=== PATIENT | female | born 1960 | race Caucasian/White ===

== ENCOUNTER → 2016-10-28 | Outpatient (CLI) | payer OTHER ==
[~2016-10-28] MED LIST: AMLODIPINE-ATO1 EAC5 PO; ASPIRIN EC81 M1 PO; HYDROCHLOROTHIA25 MG PO; LEVOTHYROXINE25 MC1 PO; VITAMIN D31000 UNI1 PO
--- NOTE | ~2016-10-28 | CT137 ---
[facility] A Service of [facility] & [facility] RADIOLOGY TEXT RESULTS PATIENT: MARY LOBO LOCATION: [facility] : 56 UNIT #: [id number] AGE: [address]: Rachel Barclay MD SEX: F ORDER DR: [id number] [address] [address] [id number] O MR#: [id number] Acc #: [id number] NAME: MARY LOBO : 1960 SEX: F STUDY DATE/TIME: 10/28/2016 0855 UNIT: [facility] ROOM: STUDY DESCRIPTION: CT Lung Screening annual Attending Physician: Rachel Barclay M.D. Referring Physician: Rachel Barclay M.D. Ordering Physician: Physician Non-Staff Primary Care Physician: Rachel Barclay M.D. MEDICAL IMAGING REPORT This report is preliminary unless electronic signature is present. EXAM CT chest, lung cancer screening, 10/28/2016, 0855 hours. CLINICAL HISTORY 55-year-old woman with a 30 pack-year history of smoking who quit smoking 14 years ago for baseline screening exam. The patient has chronic shortness of air. COMPARISON Chest x-ray 03/17/2015. There is no prior CT scan. TECHNIQUE Helical low-dose CT images were obtained from the thoracic inlet through the adrenal glands. Sagittal and coronal reconstructions were performed. Total exam DLP 105 mGy-cm. This CT exam was performed with one or more of the following radiation dose reduction techniques: automatic exposure control, adjustment of mA and/or kV according to patient size, and iterative reconstruction. FINDINGS Images through the thoracic inlet demonstrate no thyroid lesion or supraclavicular adenopathy. Images through the chest demonstrate atherosclerotic calcifications of the coronary arteries and the arch vessels. The aorta is normal in caliber. Cardiac chambers, pericardium, and esophagus are normal. There is no pathologic adenopathy. Lung window images demonstrate underlying centrilobular emphysema without blebs or bullae. There is linear scarring at the lateral left lung base. In the posterolateral aspect of the superior segment of the left lower lobe best seen on image 56 series 5, there is an ovoid soft tissue nodule STS. [facility] A Service of [facility] & [facility] RADIOLOGY TEXT RESULTS PATIENT: MARY LOBO LOCATION: [facility] : 56 UNIT #: [id number] AGE: [address]: Rachel Barclay MD SEX: F ORDER DR: which is noncalcified. There is some surrounding linear density. This measures 17 x 11 x 11 mm for a mean diameter of approximately 12 mm. This is not apparent on the prior chest radiograph. This is suspicious. No other nodules are seen. Limited views through the upper abdomen demonstrate no liver or adrenal lesion. The adrenals are not imaged in their entirety. Bone window images demonstrate multilevel degenerative spurring and endplate osteophytes. No lytic or blastic lesions. IMPRESSION 1. Abnormal baseline lung cancer screening CT chest. On image 56, there is an ovoid noncalcified soft tissue nodule with slight irregular margins and some surrounding linear density. Further evaluation is warranted. Suggest either a short-interval followup low-dose CT in 3 months for a PET/CT now. This is not apparent on prior chest radiograph 04/07/2016. 2. Lung-RADS 4a-followup low-dose CT in 3 months or PET/CT now. STAT * RESULT Dictated by... Eloina Chase M.D. THIS IS AN ELECTRONICALLY VERIFIED REPORT Eloina Chase M.D. at 10/28/2016 2:31 PM GERMAN/panda TD: 10/28/2016 09:50 JOB #: [id number] MEDICAL IMAGING REPORT Page 1 of 1
== END | disposition home or self-care (01) ==
LOC: SCT 08:43
DX: Z87.891 Personal history of nicotine dependence (principal); R91.1 Solitary pulmonary nodule; J98.4 Other disorders of lung; R91.8 Other nonspecific abnormal finding of lung field
CPT/HCPCS: G0297

== ENCOUNTER → 2016-12-01 | Outpatient (CLI) | payer OTHER ==
--- NOTE | ~2016-12-01 | CR71 ---
[facility] A Service of [facility] & [facility] RADIOLOGY TEXT RESULTS PATIENT: MARY LOBO LOCATION: [facility] : 56 UNIT #: [id number] AGE: [address]: Yandel Arroyo MD SEX: F ORDER DR: [id number] [facility] [address] [place], [place] [address] [id number] O MR#: [id number] Acc #: [id number] NAME: MARY LOBO : 1960 SEX: F STUDY DATE/TIME: 12/01/2016 12:33 UNIT: [facility] ROOM: STUDY DESCRIPTION: CR Chest Single View Attending Physician: Yandel Arroyo M.D. Referring Physician: Yandel Arroyo M.D. Ordering Physician: Marylin Gonsales M.D. Primary Care Physician: Rachel Barclay M.D. MEDICAL IMAGING REPORT This report is preliminary unless electronic signature is present EXAM Portable chest INDICATION Evaluate for pneumothorax following left lung biopsy. FINDINGS No pneumothorax is seen status post left lung biopsy. No effusion is identified. Heart size is within normal limits. Lungs appear clear. Patient does have some eventration of the hemidiaphragms bilaterally. Dictated by... Marylin Gonsales M.D. THIS IS AN ELECTRONICALLY VERIFIED REPORT Marylin Gonsales M.D. at 12/01/2016 4:54 PM AFF/mjs TD: 12/01/2016 14:20 JOB #: [id number] MEDICAL IMAGING REPORT Page 1 of 1 COPY
--- NOTE | ~2016-12-01 | CT134 ---
[facility] A Service of [facility] RADIOLOGY TEXT RESULTS PATIENT: MARY LOBO LOCATION: [facility] : 56 UNIT #: [id number] AGE: [address]: Yandel Arroyo MD SEX: F ORDER DR: [id number] [facility] [address] [place], [place] [address] [id number] O MR#: [id number] Acc #: [id number] NAME: MARY LOBO : 1960 SEX: F STUDY DATE/TIME: 12/01/2016 11:39 UNIT: [facility] ROOM: STUDY DESCRIPTION: CT Guide Attending Physician: Yandel Arroyo M.D. Referring Physician: Yandel Arroyo M.D. Ordering Physician: Yandel Arroyo M.D. Primary Care Physician: Rachel Barclay M.D. MEDICAL IMAGING REPORT This report is preliminary unless electronic signature is present EXAM CT guided lung biopsy INDICATION Left lower lobe pulmonary nodule. This was seen on a lung cancer screening examination performed October 28, 2016 and was found to be hypermetabolic on PET. TECHNIQUE This CT exam was performed with one or more of the following radiation dose reduction techniques: automatic exposure control, adjustment of mA and/or kV according to patient size, and iterative reconstruction. PROCEDURE There risks, benefits and alternatives to the procedure were explained to the patient, and signed, informed consent was obtained. Patient was placed in the prone position. Preliminary CT scan was performed through the region of interest. An appropriate site overlying the patient's nodule was selected. The overlying skin was marked. The patient was prepped and draped in the usual sterile fashion. Time-out was performed as protocol. Skin and subcutaneous tissues were anesthetized with buffered lidocaine. Anesthesia needle was left in place. Repeat CT scan however, showed that due to respiratory variation the nodule was no longer within the field of view. At this point the needle was repositioned. Repeat CT scan again showed that the lung nodule was no longer within the field of view. The patient was subsequently placed in the right lateral decubitus position. A more posterior approach was chosen. This ultimately also was not possible due to overlying rib and scapula. I subsequently moved the needle more anteriorly, again skin and subcutaneous tissues were anesthetized with buffered lidocaine. At this point, an appropriate trajectory was noted and exchanged for a 17-gauge coaxial needle which was advanced into the nodule under CT guidance. Final CT scan confirmed appropriate positioning of the needle and at this point two [facility] A Service of [facility] RADIOLOGY TEXT RESULTS PATIENT: MARY LOBO LOCATION: [facility] : 56 UNIT #: [id number] AGE: [address]: Yandel Arroyo MD SEX: F ORDER DR: core samples were obtained using an 18-gauge BioPince biopsy gun. Needle was removed and manual pressure was applied until hemostasis was obtained. Final CT scan did show a small pneumothorax adjacent to the biopsy site. The patient did receive moderate sedation consisting of 3 mg of Versed and 100 mcg of Fentanyl. I supervised the IVR nurse and monitored the patient's vital signs for a total of 35 minutes of face to face time. IMPRESSION Technically successful CT guided left lung biopsy as noted above. CT was used during the procedure and permanent images were saved. Dictated by... Marylin Gonsales M.D. THIS IS AN ELECTRONICALLY VERIFIED REPORT Marylin Gonsales M.D. at 12/02/2016 5:14 PM ROLDAN/[place] TD: 12/02/2016 10:32 JOB #: [id number] MEDICAL IMAGING REPORT Page 1 of 1 COPY
--- NOTE | ~2016-12-01 | CR71 ---
[facility] A Service of [facility] & [facility] RADIOLOGY TEXT RESULTS PATIENT: MARY LOBO LOCATION: [facility] : 56 UNIT #: [id number] AGE: [address]: Yandel Arroyo MD SEX: F ORDER DR: [id number] [facility] [address] [place], [place] [address] [id number] O MR#: [id number] Acc #: [id number] NAME: MARY LOBO : 1960 SEX: F STUDY DATE/TIME: 12/01/2016 14:55 UNIT: [facility] ROOM: STUDY DESCRIPTION: CR Chest Single View Attending Physician: Yandel Arroyo M.D. Referring Physician: Yandel Arroyo M.D. Ordering Physician: Marylin Gonsales M.D. Primary Care Physician: Rachel Barclay M.D. MEDICAL IMAGING REPORT This report is preliminary unless electronic signature is present EXAM Chest x-ray 12/01/2016 INDICATION Status post lung biopsy today. Follow up for possible pneumothorax. FINDINGS AP portable chest compared with 12/01/2016 at 1233 hours. Cardiac and mediastinal contours are normal. There is some mild left base atelectasis. Faint opacity in the left mid lateral lung may reflect the patient's known lung lesion. No pneumothorax identified on either side of the chest. IMPRESSION No pneumothorax is seen following lung biopsy. Dictated by... Gopal Strauss Jr., M.D. THIS IS AN ELECTRONICALLY VERIFIED REPORT Gopal Strauss Jr., M.D. at 12/02/2016 4:09 PM DIANE/shawn TD: 12/02/2016 09:33 JOB #: [id number] MEDICAL IMAGING REPORT Page 1 of 1 COPY
[2016-12-01 09:53] LABS: HEMATOCRIT 41.8 % (35.0-45.0); HEMOGLOBIN 13.5 gm/dL (12.0-16.0); MEAN CELL VOLUME 78.4 FL (83-96); MEAN CORPUSCULAR HEMOGLOBIN 25.4 PG (28-34); MEAN CORPUSCULAR HGB CONC 32.4 g/dL (30-36); MEAN PLATELET VOLUME 8.2 FL (6.5-11.5); RED BLOOD COUNT 5.33 X10e (3.90-5.30); RED CELL DISTRIBUTION WIDTH 14.3 % (11.0-15.5); WHITE BLOOD COUNT 5.3 X10e3 (4.0-10.5)
[2016-12-01 10:02] LABS: PARTIAL THROMBOPLASTIN TIME 23.8 SECONDS (23.5-31.3); PROTHROMBIN TIME (PATIENT) 10.5 SECONDS (10.0-11.7)
== END | disposition home or self-care (01) ==
LOC: CIVR 09:09 → CLAB 10:00 → CIVR 11:00 → CLAB 11:00
PROVIDERS: Internal Medicine Medical Oncology
DX: J84.10 Pulmonary fibrosis, unspecified (principal); D45 Polycythemia vera
CPT/HCPCS: 36415; 71010; 77012; 85027; 85610; 85730; 88305; 88312; J2250; J3010